=== PATIENT | male | born 1985 | race Caucasian/White ===

== ENCOUNTER 2018-08-29 20:26 | Emergency (ER) | payer OTHER, SELFPAY ==
[2018-08-29 20:30] VITALS: BP 96/54; PULSE 55; RESP 18; TEMP 36.7; O2SAT 100
[2018-08-29] MEDS: TET,DIPH,PERTUSS(ACELL),VAC/PF 0.5 ML SYRINGE IM (21:19)
--- NOTE | 2018-08-29 21:31 | ED.SKABFB ---
HPI - Skin/Abscess/Foreign Bdy General Chief complaint: Skin/Abscess/Foreign Body Stated complaint: CUT LT ARM Time Seen by Provider: 08/29/18 21:31 Source: patient Mode of arrival: ambulatory Limitations: no limitations History of Present Illness HPI narrative: The patient was using a sharp knife at home prior to arrival. He is right-hand dominant. He slipped with his knife, lacerating his left mid forearm. There was mild initial bleeding. Bleeding has ceased. After injuring himself he felt faint, noticed his vision was blurring, and fell to the floor. His assisted him down apparently. He awoke on the floor, recovering quickly. He has no ongoing dizziness, blurred vision, confusion or chest pain. He has no prior history of syncope. He has no cardiac, vascular respiratory problems. He has no numbness or weakness in the left arm. Related Data Home Medications Medication Instructions Recorded Confirmed No Known Home Medications 08/29/18 08/29/18 Allergies Allergy/AdvReac Type Severity Reaction Status Date / Time DUST Allergy Unknown Uncoded 07/27/17 11:50 GRASS Allergy Unknown Uncoded 07/27/17 11:50 Review of Systems Review of Systems ROS Unobtainable: All systems reviewed & are unremarkable except as noted in HPI and below Constitutional Denies lethargy and Denies weakness Eyes Denies change in vision ENT Ears, Nose, Mouth, and Throat: Denies dizziness Cardiovascular Denies chest pain, Denies irregular heart rhythm, Denies lightheadedness, Denies dyspnea, Denies dyspnea on exertion and Denies orthopnea Respiratory Denies cough, Denies dyspnea, Denies dyspnea on exertion and Denies wheezing Gastrointestinal Gastrointestinal: Denies abdominal pain, Denies change in bowel habits, Denies diarrhea, Denies nausea and Denies vomiting Musculoskeletal Denies numbness Comments: Left arm laceration Integumentary/Breasts Denies pruritus, Denies erythema, Denies rash and Denies wounds Neurologic Denies dizziness, Denies numbness and Denies weakness Psychiatric Denies anxiety Allergic/Immunologic Denies wheezing [facility] Medical History (Updated 08/30/18 @ 05:26 by Nico Lafleur MD) Healthy adult (Acute) No active medical problems (Acute) Surgical History (Updated 08/30/18 @ 05:27 by Nico Lafleur MD) No pertinent past surgical history (Acute) Social History Smoking Status: Never smoker Social History Smoking Status: Never smoker Exam Initial Vital Signs Initial Vital Signs: Vital Signs Temperature 98.1 F 08/29/18 20:30 Pulse Rate 55 L 08/29/18 20:30 Respiratory Rate 18 08/29/18 20:30 Blood Pressure 96/54 L 08/29/18 20:30 Pulse Oximetry 100 08/29/18 20:30 Const General: cooperative and well developed Nutritional Appearance: well nourished Orientation: alert, awake, oriented x3 and not confused HENMT Head: normocephalic and atraumatic Face and sinus: no sinus tenderness Mouth: oral mucosae normal and moist mucous membranes Teeth and gingiva: dentition normal Throat: tonsils normal and uvula midline Eyes General: appearance normal, both eyes and all related structures Eyelids: eyelids normal Conjunctivae: conjunctivae normal Sclera: sclerae normal Pupils: PERRL EOM: EOM intact bilaterally Resp Effort & Inspection: normal respiratory effort, able to speak in complete sentences, no respiratory distress and no use of accessory muscles Auscultation: clear to auscultation bilaterally, no rales, no rhonchi and no wheezes Cardio Rate: regular rate Rhythm: regular rhythm Heart Sounds: no click, no gallops, no murmurs and no rubs Pulses: normal peripheral pulses Skin General: no rashes or lesions noted Trauma: laceration left dorsal forearm linear Neuro General: alert, oriented x3, gait normal and no focal motor deficits Speech: speech normal Procedures Laceration Repair Laceration 1: Site: upper extremity (Forearm) Side (If applicable): left Size (cm): 3 Description: linear Depth: simple, single layer Local Anesthetic: lidocaine 1% Pre-repair: wound explored, irrigated extensively and deep structures intact Skin layer closed with: nylon Size (cm): 5-0 Technique: simple, interrupted Course Course Narrative: Following the laceration repair the wound was cleansed and bandaged by the patient's nurse. The patient tolerated the procedure well, there were no complications. He apparently had vasovagal syncope, there are 0 no other clinical findings at this time. Orders Ordered: Discontinued Medications Diphtheria/Tetanus/Acell Pertussis (Adacel) 0.5 ml IM .ONCE ONE Stop: 08/29/18 20:35 Last Admin: 08/29/18 21:19 Dose: 0.5 ml Vital Signs - 8 hr 08/29/18 22:10 Temperature 98.0 F Pulse Rate 48 L Respiratory Rate 16 Blood Pressure [Right Arm] 120/78 Pulse Oximetry 99 Discharge Plan Departure Patient Disposition: Home Clinical Impression: Laceration of arm Qualifiers: Encounter type: initial encounter Laterality: left Qualified Code(s): S41.112A - Laceration without foreign body of left upper arm, initial encounter Discharge Date/Time: 08/29/18 22:05 Interventions: ED Discharge Assessment Last Done: 08/29/18 22:05 Instructions: DI for Laceration Repair Activity Restrictions/Additional Instructions: Keep a bandage on the left arm for 1 day. Afterwards you may shower, wash normally. I would recommend keeping the laceration covered when at work. Follow-up with your doctor in about 10 days for suture removal. Return here if necessary. Prescriptions: No Action No Known Home Medications RF: 0
[2018-08-29 22:10] VITALS: BP 120/78; PULSE 48; RESP 16; TEMP 36.7; O2SAT 99
== END 2018-08-29 22:05 | disposition home or self-care (01) ==
PROVIDERS: Emergency Provider Emergency Medicine
DX: S41.112A Laceration without foreign body of left upper arm, initial encounter (principal); W19.XXXA Unspecified fall, initial encounter; W26.0XXA Contact with knife, initial encounter; Z23 Encounter for immunization
CPT/HCPCS: 12002; 90471; 90472; 99282; 99283; 90715

== ENCOUNTER → 2020-04-10 11:31 | Outpatient (CLI) | payer OTHER, SELFPAY ==
[2020-04-10 12:03] LABS: COVID19 -Nasal RAPID Negative (Negative)
== END ==
PROVIDERS: Visit Provider Physician Assistant
DX: Z20.828 Contact with and (suspected) exposure to other viral communicable diseases (principal); R09.81 Nasal congestion
CPT/HCPCS: 87635

== ENCOUNTER 2020-06-04 09:10 | Emergency (ER) | payer OTHER, SELFPAY ==
--- NOTE | 2020-06-04 09:17 | DI.RAD.S_ITS ---
PROCEDURE: XR CHEST 1V INDICATIONS: chest pain TECHNIQUE: One view of the chest was acquired. COMPARISON: None. FINDINGS: Surgical changes and devices: None. Lungs and pleura: Lungs are clear. No pleural effusions or pneumothorax. Mediastinum: Mediastinal contours appear normal. Heart size is normal. Bones and chest wall: No suspicious bony lesions. Overlying soft tissues appear unremarkable. IMPRESSION: No acute pulmonary process. Dictated by: Brittany Palumbo M.D. on 06/04/2020 at 9:59 Approved by: Brittany Palumbo M.D. on 06/04/2020 at 10:00
[2020-06-04 09:20] VITALS: PULSE 52; RESP 17; O2SAT 100
[2020-06-04 09:23] VITALS: BP 148/67; PULSE 49; RESP 16; TEMP 36.9; O2SAT 99; BMI 25.8
[2020-06-04 09:30] VITALS: PULSE 55; RESP 17; O2SAT 100
[2020-06-04 09:50] LABS: Add Manual Diff / Slide Review NO; Basophils Absolute Auto 0 /uL (0-100); Basophils Percent Auto 1.2 % (0-2); Eosinophils Absolute Auto 200 /uL (0-450); Eosinophils Percent Auto 4.4 % (2-4); Hematocrit 43.4 % (41-53); Lymphocytes Absolute Auto 1300 /uL (1100-4500); Lymphocytes Percent Auto 33.2 % (25-40); Mean Corpuscular HGB Conc 34.5 % (30-36); Mean Corpuscular Hemoglobin 31.1 PG (26-34); Mean Corpuscular Volume 90.1 fL (80-100); Monocytes Absolute Auto 200 /uL (0-900); Monocytes Percent Auto 5.5 % (3-14); Neutrophils Absolute Auto 2200 /uL (1500-7000); Neutrophils Percent Auto 55.7 % (50-75); Platelet Count 212 X10^3/uL (150-400); Red Blood Cell Count 4.82 X10^6/uL (4.5-5.9); Red Cell Distribution Width 12.4 % (11.6-14.8); White Blood Cell Count 3.9 X10^3/uL (4.5-11.0)
[2020-06-04 09:55] LABS: INR 1.1 (0.9-1.3); Prothrombin Time 12.4 SECONDS (10.1-12.7)
[2020-06-04 09:58] LABS: PTT Partial Thromboplastin Tim 33 SECONDS (26.4-36.2)
[2020-06-04 10:00] VITALS: PULSE 51; RESP 15; O2SAT 100
[2020-06-04 10:01] LABS: Alanine Aminotransferase 20 IU/L (<50); Albumin 4.4 g/dL (3.5-5.0); Albumin Globulin Ratio 1.5 (1.0-2.8); Alkaline Phosphatase 64 U/L (38-126); Aspartate Aminotransferase 21 IU/L (17-59); BUN Creatinine Ratio 14.1 (6-22); Bilirubin Total 0.7 mg/dL (0.2-1.3); Blood Urea Nitrogen 14 mg/dL (9-20); Calcium 9.3 mg/dL (8.4-10.2); Carbon Dioxide 32 mmol/L (22-32); Chloride 103 mmol/L (98-107); Creatine Kinase 121 U/L (55-170); Estimated Glomerular Filt Rate > 60.0 mL/min (>60); Globulin 2.9 g/dL (1.7-4.1); Glucose 70 mg/dL (70-100); HEMOLYSIS < 15 (0-50); Lipase 105 U/L (23-300); Sodium 139 mmol/L (137-145); Total Protein 7.3 g/dL (6.3-8.2)
[2020-06-04 10:12] LABS: Troponin I < 0.012 ng/mL (0.01-0.034)
[2020-06-04 10:26] LABS: CKMB % Relative Index 0.5 % (1.5-5.0); Creatine Kinase MB 0.66 ng/mL (<2.37)
[2020-06-04 10:30] VITALS: BP 133/58; PULSE 58; RESP 14; O2SAT 100
--- NOTE | 2020-06-04 10:45 | ED.RECABL ---
HPI - Recheck/Abnormal Lab/Rx General Chief Complaint: Recheck/Abnormal Lab/Rx Stated Complaint: low heart rate of 36-40 today Time Seen by Provider: 06/04/20 10:44 Source: patient Mode of arrival: Ambulatory Limitations: no limitations History of Present Illness HPI narrative: 34-year-old male comes emergency department with complaint of low heartbeat. He states that he received apple watch 2 weeks ago he has had heart rates typically in the 40s but today had a low in the 30s. His lowest this morning was 36. Patient states he has been told once before when he was at [facility] for that his heart rate was in the 40s. At that time he was present because he had multiple stings from around wasps and did not have any other cardiac issues. He denies any other medical issues, no prior surgeries, no medications. No drug allergies. No tobacco, rare alcohol and no illicit. No family history of cardiac abnormalities, sudden cardiac or heart attacks. Patient follows with primary care. They contacted his physician today with a noted low heart rate, his initially called Cardiology her for him to primary care who then referred him to the ER to get an EKG. Patient denies any other symptoms. 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 He does note that his heart rate will increase to the 50s or 60s when he is walking around her active and tends to be in the 30s or 40s when he sitting or sleeping on his Apple watch. Related Data Home Medications Medication Instructions Recorded Confirmed No Known Home Medications 08/29/18 06/04/20 Allergies Allergy/AdvReac Type Severity Reaction Status Date / Time No Known Drug Allergies Allergy Verified 06/04/20 10:38 Review of Systems Review of Systems ROS Unobtainable: All systems reviewed & are unremarkable except as noted in HPI and below Patient History Medical History Healthy adult No active medical problems URI (upper respiratory infection) Surgical History No pertinent past surgical history Social History Smoking Status: Never smoker Smoking Status: Never smoker alcohol intake frequency: 0-2 drinks per day Substance Use Type: does not use Exam Narrative Exam Narrative: GENERAL: Alert and oriented x three, well-nourished, well-appearing male in mild distress HEENT: Head normocephalic, atraumatic, EOMI, pupils reactive, face symmetric, moist mucous membranes NECK: Supple, full range of motion CARDIOVASCULAR: Bradycardic but Regular rate and rhythm without murmurs, rubs or gallops. RESPIRATORY: Breath sounds equal bilaterally, no wheezes rales or rhonchi. ABDOMEN: Soft, nontender. Normoactive bowel sounds all 4 quadrants. No guarding or rebound, rigidity, no mass : No CVA tenderness EXTREMITIES: Normal range of motion, no edema. Neurovascularly intact NEUROLOGICAL: Cranial nerves II through XII grossly intact. Moving all extremities SKIN: Warm, dry, no petechiae, no rashes or lesions. Initial Vital Signs Initial Vital Signs: Vital Signs Pulse Rate 52 L 06/04/20 09:20 Respiratory Rate 17 06/04/20 09:20 Pulse Oximetry 100 06/04/20 09:20 Course Orders Ordered: ED Orders 06/04/20 09:17 XR chest 1V Stat 06/04/20 09:18 EKG-12 Lead Stat 06/04/20 09:40 Complete Blood Count AUTO DIFF Stat Comprehensive Metabolic Panel Stat Lipase Stat Partial Thromboplastin Time Stat Prothrombin Time INR Stat Troponin & CK Cardiac Panel Stat 06/04/20 10:35 Urine Culture Stat Consultations Consultation #1: updated [facility] findings. Time: 11:01 Vital Signs Vital signs: Vital Signs - 8 hr 06/04/20 09:20 06/04/20 09:23 06/04/20 09:30 Temperature 98.5 F Pulse Rate 52 L 49 L 55 L Respiratory Rate 17 16 17 Blood Pressure 148/67 H Pulse Oximetry 100 99 100 06/04/20 10:00 06/04/20 10:30 Temperature Pulse Rate 51 L 58 L Respiratory Rate 15 14 Blood Pressure 133/58 L Pulse Oximetry 100 100 [facility] - Recheck/Abnormal Lab/Rx Lab Data Attestation: I reviewed the patient's lab results. Result diagrams: 06/04/20 09:40 06/04/20 09:40 Labs: Lab Results 02/17/21 02/17/21 02/17/21 Range/Units 09:40 09:40 09:40 WBC 3.9 L (4.5-11.0) X10^3/uL RBC 4.82 (4.5-5.9) X10^6/uL Hgb 15.0 (13.5-17.5) g/dL Hct 43.4 (41-53) % MCV 90.1 (80-100) fL MCH 31.1 (26-34) PG MCHC 34.5 (30-36) % RDW 12.4 (11.6-14.8) % Plt Count 212 (150-400) X10^3/uL Neut % (Auto) 55.7 (50-75) % Lymph % (Auto) 33.2 (25-40) % [place] % (Auto) 5.5 (3-14) % Eos % (Auto) 4.4 H (2-4) % Baso % (Auto) 1.2 (0-2) % Neut # (Auto) 2200 (2469-9770) /uL Lymph # (Auto) 1300 (3827-4981) /uL [place] # (Auto) 200 (0-900) /uL Eos # (Auto) 200 (0-450) /uL Baso # (Auto) 0 (0-100) /uL PT 12.4 (10.1-12.7) SECONDS INR 1.1 (0.9-1.3) APTT 33 (26.4-36.2) SECONDS Sodium 139 (137-145) mmol/L Potassium 4.0 (3.4-5.1) mmol/L Chloride 103 (98-107) mmol/L Carbon Dioxide 32 (22-32) mmol/L BUN 14 (9-20) mg/dL Creatinine 0.99 (0.66-1.25) mg/dL Estimated GFR > 60.0 (>60) mL/min BUN/Creatinine Ratio 14.1 (6-22) Glucose 70 (70-100) mg/dL Calcium 9.3 (8.4-10.2) mg/dL Total Bilirubin 0.7 (0.2-1.3) mg/dL AST 21 (17-59) IU/L ALT 20 (<50) IU/L Alkaline Phosphatase 64 (38-126) U/L Total Creatine Kinase 121 (55-170) U/L CK-MB (CK-2) 0.66 (<2.37) ng/mL CK-MB (CK-2) Rel Index 0.5 L (1.5-5.0) % Troponin I < 0.012 (0.01-0.034) ng/mL Total Protein 7.3 (6.3-8.2) g/dL Albumin 4.4 (3.5-5.0) g/dL Globulin 2.9 (1.7-4.1) g/dL Albumin/Globulin Ratio 1.5 (1.0-2.8) Lipase 105 (23-300) U/L Urine Color Urine Appearance Urine pH Ur Specific Leslie Urine Protein Urine Glucose (UA) Urine Ketones Urine Occult Blood Urine Nitrate Urine Bilirubin Urine Urobilinogen Ur Leukocyte Esterase Urine RBC Urine WBC Ur Squamous Epith Cells Ur Transition Epith Cell Ur Renal Epithelial Cell Calcium Oxalate Crystal Uric Acid Crystals Triple Phos Crystals Other Crystals Amorphous Sediment Urine Bacteria Hyaline Casts Granular Casts RBC Casts WBC Casts Other Casts Urine Mucus Urine Trichomonas Urine Yeast Urine Sperm Ur Culture Indicated? Micro UA Comment 06/04/20 Range/Units 10:35 WBC (4.5-11.0) X10^3/uL RBC (4.5-5.9) X10^6/uL Hgb (13.5-17.5) g/dL Hct (41-53) % MCV (80-100) fL MCH (26-34) PG MCHC (30-36) % RDW (11.6-14.8) % Plt Count (150-400) X10^3/uL Neut % (Auto) (50-75) % Lymph % (Auto) (25-40) % [place] % (Auto) (3-14) % Eos % (Auto) (2-4) % Baso % (Auto) (0-2) % Neut # (Auto) (0211-9514) /uL Lymph # (Auto) (5193-2927) /uL [place] # (Auto) (0-900) /uL Eos # (Auto) (0-450) /uL Baso # (Auto) (0-100) /uL PT (10.1-12.7) SECONDS INR (0.9-1.3) APTT (26.4-36.2) SECONDS Sodium (137-145) mmol/L Potassium (3.4-5.1) mmol/L Chloride (98-107) mmol/L Carbon Dioxide (22-32) mmol/L BUN (9-20) mg/dL Creatinine (0.66-1.25) mg/dL Estimated GFR (>60) mL/min BUN/Creatinine Ratio (6-22) Glucose (70-100) mg/dL Calcium (8.4-10.2) mg/dL Total Bilirubin (0.2-1.3) mg/dL AST (17-59) IU/L ALT (<50) IU/L Alkaline Phosphatase (38-126) U/L Total Creatine Kinase (55-170) U/L CK-MB (CK-2) (<2.37) ng/mL CK-MB (CK-2) Rel Index (1.5-5.0) % Troponin I (0.01-0.034) ng/mL Total Protein (6.3-8.2) g/dL Albumin (3.5-5.0) g/dL Globulin (1.7-4.1) g/dL Albumin/Globulin Ratio (1.0-2.8) Lipase (23-300) U/L Urine Color Cancelled Urine Appearance Cancelled Urine pH Cancelled Ur Specific Leslie Cancelled Urine Protein Cancelled Urine Glucose (UA) Cancelled Urine Ketones Cancelled Urine Occult Blood Cancelled Urine Nitrate Cancelled Urine Bilirubin Cancelled Urine Urobilinogen Cancelled Ur Leukocyte Esterase Cancelled Urine RBC Cancelled Urine WBC Cancelled Ur Squamous Epith Cells Cancelled Ur Transition Epith Cell Cancelled Ur Renal Epithelial Cell Cancelled Calcium Oxalate Crystal Cancelled Uric Acid Crystals Cancelled Triple Phos Crystals Cancelled Other Crystals Cancelled Amorphous Sediment Cancelled Urine Bacteria Cancelled Hyaline Casts Cancelled Granular Casts Cancelled RBC Casts Cancelled WBC Casts Cancelled Other Casts Cancelled Urine Mucus Cancelled Urine Trichomonas Cancelled Urine Yeast Cancelled Urine Sperm Cancelled Ur Culture Indicated? Cancelled Micro UA Comment Cancelled Imaging Data Chest x-ray: Radiologist's Impression: [address] [id number] ReportSigned Patient: Bertin Tam [facility]#: [id number]: 1985Acct:[id number]/Sex: 34 / MDate of Service: 06/04/20Loc: EDAccession Number: [id number] Procedure: XR chest 1V Ordering Provider: Christina Muller D.O. PROCEDURE: XR CHEST 1V INDICATIONS: chest pain TECHNIQUE: One view of the chest was acquired. COMPARISON: None. FINDINGS: Surgical changes and devices: None. Lungs and pleura: Lungs are clear. No pleural effusions or pneumothorax. Mediastinum: Mediastinal contours appear normal. Heart size is normal. Bones and chest wall: No suspicious bony lesions. Overlying soft tissues appear unremarkable. IMPRESSION: No acute pulmonary process. Dictated by: Brittany Palumbo M.D. on 06/04/2020 at 9:59 Approved by: Brittany Palumbo M.D. on 06/04/2020 at 10:00 ECG Data Attestation: I personally reviewed and interpreted this ECG as follows: Prior ECG tracings: not available for review Interpretation: Sinus bradycardia rate of 44, TX interval 132 QRS of 105 and QTC of 378. RSR in lead 3. No other acute ST changes appreciated. MDM Narrative Medical decision making narrative: This is a 34-year-old male with asymptomatic bradycardia appreciated within new [employer]. Patient EKG does not show any other major electrical abnormalities labs do not show any abnormalities that would causes bradycardia with normal chest x-ray with no cardiomegaly. Patient does not have any concerning family history at this time. Return precautions discussed. Discharge Plan Departure Patient Disposition: Home Clinical Impression: Bradycardia Instructions: DI for Bradycardia Activity Restrictions/Additional Instructions: Follow up with Dr. Liang, they may wish to obtain some additional work up as an outpatient. Discuss with Dr. Liang. Your EKG today shows sinus bradycardia or a slow heartbeat but no other electrical abnormalities are appreciated. Return to the emergency department if you know your heart rates running in the 20s or below 30s, if you are having any symptoms such as lightheadedness or passing out, new chest pain, shortness of breath, swelling in her extremities, diaphoresis or sweating, or any other new or concerning symptoms. Prescriptions: No Action No Known Home Medications RF: 0 Referrals: Nico Liang MD [Primary Care Provider] -
--- NOTE | 2020-06-04 10:48 | PC.NURSE ---
UA/Micro order placed on wrong pt, not collected & sent.
== END 2020-06-04 11:13 | disposition home or self-care (01) ==
PROVIDERS: Emergency Provider Emergency Medicine; PCP Family Medicine
DX: R00.1 Bradycardia, unspecified (principal); R07.9 Chest pain, unspecified
CPT/HCPCS: 36415; 71045; 80053; 82550; 82553; 83690; 84484; 85025; 85610; 85730; 87086; 93005; 93010; 99283; 99284

== ENCOUNTER 2022-09-22 23:09 | Emergency (ER) | payer OTHER, SELFPAY ==
[2022-09-22 23:42] VITALS: BP 141/80; PULSE 72; RESP 18; TEMP 36.2; O2SAT 100; BMI 27.3
[2022-09-22 23:59] VITALS: PULSE 69; RESP 14; O2SAT 100
[2022-09-23] VITALS (13 sets, daily range): BP systolic 107–142; BP diastolic 53–75; PULSE 41–67; RESP 9–33; TEMP 36.3; O2SAT 97–100
[2022-09-23] MEDS: ONDANSETRON 4 MG/2 ML INJ IV (00:33)
[2022-09-23 00:39] LABS: Add Manual Diff / Slide Review NO; Basophils Absolute Auto 100 /uL (0-100); Basophils Percent Auto 0.5 % (0-2); Eosinophils Absolute Auto 200 /uL (0-450); Eosinophils Percent Auto 1.9 % (2-4); Hematocrit 45.7 % (41-53); Hemoglobin 15.9 g/dL (13.5-17.5); Lymphocytes Absolute Auto 2200 /uL (1100-4500); Mean Corpuscular HGB Conc 34.7 % (30-36); Mean Corpuscular Hemoglobin 30.5 PG (26-34); Mean Corpuscular Volume 87.8 fL (80-100); Monocytes Absolute Auto 700 /uL (0-900); Monocytes Percent Auto 5.3 % (3-14); Neutrophils Absolute Auto 9100 /uL (1500-7000); Neutrophils Percent Auto 74.3 % (50-75); Platelet Count 241 X10^3/uL (150-400); Red Blood Cell Count 5.21 X10^6/uL (4.5-5.9); Red Cell Distribution Width 12.6 % (11.6-14.8); White Blood Cell Count 12.2 X10^3/uL (4.5-11.0)
[2022-09-23 00:54] LABS: Alanine Aminotransferase 39 IU/L (<50); Albumin Globulin Ratio 1.7 (1.0-2.8); Alkaline Phosphatase 83 U/L (38-126); Aspartate Aminotransferase 34 IU/L (17-59); BUN Creatinine Ratio 18.3 (6-22); Bilirubin Total 0.8 mg/dL (0.2-1.3); Blood Urea Nitrogen 17 mg/dL (9-20); Calcium 9.3 mg/dL (8.4-10.2); Carbon Dioxide 26 mmol/L (22-32); Chloride 100 mmol/L (98-107); Estimated Glomerular Filt Rate > 60 mL/min (>60); Glucose 128 mg/dL (70-100); HEMOLYSIS 25 (0-50); Lipase 111 U/L (23-300); Potassium 3.3 mmol/L (3.4-5.1); Sodium 137 mmol/L (137-145)
[2022-09-23 01:29] LABS: Creatine Kinase 138 U/L (55-170)
[2022-09-23 01:42] LABS: Troponin I < 0.012 ng/mL (0.01-0.034)
--- NOTE | 2022-09-23 03:03 | ED_ITS ---
HPI - Abdominal Pain General Chief Complaint: Abdominal Pain Stated Complaint: abd pain Time Seen by Provider: 09/23/22 00:47 Source: patient Mode of arrival: Ambulatory Limitations: no limitations History of Present Illness HPI narrative: 36-year-old male with history of lactose intolerance, patient states he had sudden onset abdominal pain about 515 this evening, started feeling much more bloated and having increasing pain about 8:00 p.m. continued to increase. He states was sort of just above the umbilicus in a band across. No fevers felt a little chilled. Nauseated but no vomiting. Has been stooling regularly no black or bloody stools. No bright red blood. No dysuria urgency or frequency. He states a little bit of flank pain on both sides. He states it has decreased since he had some Zofran here in the department his nausea is resolved. No testicular pain, no dysuria, urgency or frequency. He did take ibuprofen at 5:00 p.m.. Patient states he does sometimes feel unwell when he has lactose but usually lower in his abdomen and not higher up. He states he had carrots, homeless, crackers typical foods that he eats that do not have any lactose in them. He states no major medical issues he takes Zyrtec sometimes. No prior surgeries. No known drug allergies. No tobacco, 1-2 alcoholic drinks a week, no illicit. He notes he does have a low heart rate as does his father and grandfather and has been noted to be down in the 30s when he is asleep. Related Data Previous Rx's Medication Instructions Recorded ketorolac 10 mg tablet 10 mg PO Q6H PRN pain 5 days #10 09/23/22 tabs ondansetron 4 mg disintegrating 4 mg PO Q6H PRN nausea and 09/23/22 tablet vomiting #5 tabs Allergies Allergy/AdvReac Type Severity Reaction Status Date / Time No Known Drug Allergies Allergy Verified 06/04/20 10:38 Review of Systems Review of Systems ROS Unobtainable: All systems reviewed & are unremarkable except as noted in HPI and below Patient History Medical History Healthy adult No active medical problems URI (upper respiratory infection) Surgical History No pertinent past surgical history Social History Smoking Status: Never smoker Smoking Status: Never smoker alcohol intake frequency: 0-2 drinks per day Substance Use Type: does not use Exam Narrative Exam Narrative: GENERAL: Alert and oriented x three, well-nourished, well-appearing male in mild distress. HEENT: Head normocephalic, atraumatic, EOMI, pupils reactive, face symmetric, moist mucous membranes NECK: Supple, full range of motion CARDIOVASCULAR: Regular rate and rhythm without murmurs, rubs or gallops. RESPIRATORY: Breath sounds equal bilaterally, no wheezes rales or rhonchi. ABDOMEN: Soft, generalized tenderness no increase in pain with deep palpation.. Normoactive bowel sounds all 4 quadrants. No guarding or rebound, rigidity, no mass, non-distended. : No CVA tenderness EXTREMITIES: Normal range of motion, no clubbing or edema. Neurovascularly intact NEUROLOGICAL: Cranial nerves II through XII grossly intact. Moving all ext remities SKIN: Warm, dry, no petechiae, no rashes or lesions. Initial Vital Signs Initial Vital Signs: Vital Signs Temperature 97.1 F L 09/22/22 23:42 Pulse Rate 72 09/22/22 23:42 Respiratory Rate 18 09/22/22 23:42 Blood Pressure 141/80 H 09/22/22 23:42 Pulse Oximetry 100 09/22/22 23:42 Oxygen Delivery Method Room Air 09/22/22 23:42 Course Orders Ordered: ED Orders 09/23/22 00:06 Complete Blood Count AUTO DIFF Stat Comprehensive Metabolic Panel Stat Lipase Stat EKG-12 Lead Stat 09/23/22 00:48 Troponin & CK Cardiac Panel Stat 09/23/22 03:15 CT abdomen pelvis w con Stat Discontinued Medications Sodium Chloride (Normal Saline 0.9%) 1,000 mls @ 1,000 mls/hr IV BOLUS ONE Stop: 09/23/22 04:14 Last Infusion: 09/23/22 04:24 Dose: 0 mls/hr Documented By: Admin: 09/23/22 03:24 Dose: 1,000 mls/hr Documented By: MANUELA Ketorolac Tromethamine (Ketorolac 30 Mg/Ml Vial) 15 mg IV NOW ONE Stop: 09/23/22 03:16 Last Admin: 09/23/22 03:23 Dose: 15 mg Documented By: MANUELA Ondansetron HCl (Ondansetron 4 Mg Odt) 4 mg PO NOW PRN PRN Reason: Nausea And Vomiting Ondansetron HCl (Ondansetron 4 Mg/2 Ml Inj) 4 mg IV NOW PRN PRN Reason: Nausea And Vomiting Last Admin: 09/23/22 00:33 Dose: 4 mg Documented By: MANUELA Ondansetron HCl (Ondansetron 4 Mg Odt Prepack) 1 bottle MISC SEEINSTR ONE Stop: 09/23/22 04:37 Vital Signs Vital signs: Vital Signs - 8 hr 09/22/22 23:42 09/23/22 04:56 09/22/22 23:59 Temperature 97.1 F L 97.3 F L Pulse Rate 72 56 L 69 Respiratory Rate 18 14 14 Blood Pressure 141/80 H 114/58 L Pulse Oximetry 100 99 100 Oxygen Delivery Method Room Air Room Air 09/23/22 00:00 09/23/22 00:00 09/23/22 00:30 Temperature Pulse Rate 67 50 L Respiratory Rate 12 Blood Pressure 128/63 Pulse Oximetry 100 100 Oxygen Delivery Method 09/23/22 00:31 09/23/22 00:31 09/23/22 01:00 Temperature Pulse Rate 48 L Respiratory Rate 9 L Blood Pressure 127/72 122/64 Pulse Oximetry 100 Oxygen Delivery Method 09/23/22 01:00 09/23/22 01:30 09/23/22 01:30 Temperature Pulse Rate 41 L 42 L Respiratory Rate 19 14 Blood Pressure 142/75 H Pulse Oximetry 99 100 Oxygen Delivery Method 09/23/22 02:00 09/23/22 02:00 09/23/22 02:30 Temperature Pulse Rate 52 L Respiratory Rate 14 Blood Pressure 116/62 135/63 Pulse Oximetry 97 Oxygen Delivery Method 09/23/22 02:30 09/23/22 03:00 09/23/22 03:01 Temperature Pulse Rate 53 L 43 L Respiratory Rate 20 14 Blood Pressure 107/53 L Pulse Oximetry 97 98 Oxygen Delivery Method 09/23/22 03:01 09/23/22 03:32 09/23/22 04:00 Temperature Pulse Rate 43 L 64 54 L Respiratory Rate 15 29 H Blood Pressure Pulse Oximetry 99 100 99 Oxygen Delivery Method 09/23/22 04:30 Temperature Pulse Rate 49 L Respiratory Rate 33 H Blood Pressure 112/58 L Pulse Oximetry 100 Oxygen Delivery Method MDM - Abdominal Pain Lab Data 09/22/22 23:55 09/22/22 23:55 Labs: Lab Results 09/22/22 09/22/22 09/22/22 Range/Units 23:55 23:55 23:55 WBC 12.2 H (4.5-11.0) X10^3/uL RBC 5.21 (4.5-5.9) X10^6/uL Hgb 15.9 (13.5-17.5) g/dL Hct 45.7 (41-53) % MCV 87.8 (80-100) fL MCH 30.5 (26-34) PG MCHC 34.7 (30-36) % RDW 12.6 (11.6-14.8) % Plt Count 241 (150-400) X10^3/uL Neut % (Auto) 74.3 (50-75) % Lymph % (Auto) 18.0 L (25-40) % [place] % (Auto) 5.3 (3-14) % Eos % (Auto) 1.9 L (2-4) % Baso % (Auto) 0.5 (0-2) % Neut # (Auto) 9100 H (7409-9338) /uL Lymph # (Auto) 2200 (0479-5062) /uL [place] # (Auto) 700 (0-900) /uL Eos # (Auto) 200 (0-450) /uL Baso # (Auto) 100 (0-100) /uL Sodium 137 (137-145) mmol/L Potassium 3.3 L (3.4-5.1) mmol/L Chloride 100 (98-107) mmol/L Carbon Dioxide 26 (22-32) mmol/L BUN 17 (9-20) mg/dL Creatinine 0.93 (0.66-1.25) mg/dL Estimated GFR > 60 (>60) mL/min BUN/Creatinine Ratio 18.3 (6-22) Glucose 128 H (70-100) mg/dL Calcium 9.3 (8.4-10.2) mg/dL Total Bilirubin 0.8 (0.2-1.3) mg/dL AST 34 (17-59) IU/L ALT 39 (<50) IU/L Alkaline Phosphatase 83 (38-126) U/L Total Creatine Kinase 138 (55-170) U/L CK-MB (CK-2) TNP CK-MB (CK-2) Rel Index TNP Troponin I < 0.012 (0.01-0.034) ng/mL Total Protein 8.0 (6.3-8.2) g/dL Albumin 5.0 (3.5-5.0) g/dL Globulin 3.0 (1.7-4.1) g/dL Albumin/Globulin Ratio 1.7 (1.0-2.8) Lipase 111 (23-300) U/L Point of care testing: Urine Dip Bedside Urine Glucose Negative Bedside Urine Bilirubin - Negative Bedside Urine Ketone - Negative Urine Specific [place] 1.010 Bedside Urine Occult Blood - Negative Bedside Urine pH 8.5 Bedside Urine Protein - Negative Bedside Urine Urobilinogen - Negative Bedside Urine Nitrite - Negative Bedside Urine Leukocytes - Negative Esterase Imaging Data CT scan - abdomen/pelvis: Radiologist's Impression: Findings compatible with small-bowel obstruction with transition point within the left mid abdomen. No pneumoperitoneum or pneumatosis noted. Lung bases are clear. No pericardial pleural effusion. Liver, gallbladder, pancreas, spleen a nd adrenal glands and kidneys are normal. Prominent lymph nodes within the right lower quadrant measuring up to 9 mm in short axis. No retroperitoneal adenopathy. No abdominal ascites. Trace free fluid within the pelvis. Bladder is unremarkable. Prostate gland and seminal vesicles are normal. The colon is unremarkable. Normal-appearing appendix. Dilated small bowel loops measuring up to 4.4 cm with scattered air-fluid levels present and fecalization with a transition point within left mid abdomen. No suspicious lytic or sclerotic lesions noted. ECG Data Attestation: I personally reviewed and interpreted this ECG as follows: Interpretation: Sinus bradycardia, rate of 43 SC 174 QRS of 122, QTC 380. Little bit ST depression 2 3 and AVF. No elevation. Patient has prior from 06/04/2020 that had similar lead 3 TG 2 and AVF. MDM Narrative Medical decision making narrative: This is a 36-year-old male who presents with quite a bit abdominal pain initially has improved over time had some Zofran which was helpful. Has a history of lactose intolerance he denies any ingestions that would cause issues and states all the food that he ate are typical foods that are not problematic for him. Patient states kind of upper abdominal above the umbilicus in a band across little bit into the flanks. Labs including CBC, coags CMP shows a potassium of 3 3, glucose is 128, LFTs are negative, troponin was added on he is not having any chest pain or shortness of breath but EKG showed will ST change in 2 and AVF. Patient received Zofran which was helpful. Discussed with patient risks versus benefits he is feeling better but still somewhat painful. He is nontender on exam. Patient and I discussed options, felt ultrasound not likely helpful as he is nontender in these areas. Can do CT abdomen pelvis may not yield much information and does have radiation risk. Patient elects to proceed with imaging as he states this is very atypical for him. CT abdomen pelvis shows transition point in the left midabdomen. Patient had nausea but has not been having vomiting. , he notes he has been stooling regularly. Discussed with patient would likely recommend clear liquid diet, pain control and strict return precautions if not having bowel movements or flatus or having any vomiting or worsening symptoms. Patient feels comfortable with this plan. Discussed observation but he feels comfortable returning home. Discussed importance of hydration, strict return precautions and if patient is having any of the reviewed symptoms he needs to return. We will give a course of Zofran with just a few tablets, can do Tylenol and oral ketorolac as he thought this helpful for pain. Patient has not had any intra-abdominal surgery, no other known risk factors for bowel obstruction we discussed that patient should have colonoscopy to evaluate for potential reasons why he may have developed is changes on his imaging. Discharge Plan Departure Patient Disposition: Home Clinical Impression: Partial bowel obstruction Instructions: DI for Small Bowel Obstruction Activity Restrictions/Additional Instructions: Follow-up in the next 24-48 hours if your symptoms have not resolved or are not significantly improved. Your imaging today shows a transition point or signs consistent with possible bowel obstruction in the left mid abdomen. I would recommend clear liquid diet for the initial 12 hours, if tolerating this without issue and pain is improving you can start to advance your diet initially to soft diet and then solids slowly over time. You may take Zofran 1 tablet every 6 hours as needed for nausea. You may take Tylenol up to a 1000 mg every 6 hours as needed for pain, you can take ketorolac 1 tablet every 6 hours as needed for pain as well. This medication is in the same category as ibuprofen so do not take NSAIDs, Aleve or naproxen with it. Prescription sent to [facility] in [place]. Please return for fevers, worsening abdominal pain, vomiting, if you are not passing gas or having a bowel movement or other new or concerning changes. Prescriptions: New ketorolac 10 mg tablet 10 mg PO Q6H PRN (Reason: pain) 5 Days Qty: 10 0RF ondansetron 4 mg tablet,disintegrating 4 mg PO Q6H PRN (Reason: nausea and vomiting) Qty: 5 0RF Referrals: Nico Liang MD [Primary Care Provider] - Stand Alone Forms: Patient Portal/API
--- NOTE | 2022-09-23 03:15 | DI.CT.S_ITS ---
PROCEDURE: CT ABDOMEN PELVIS W CON INDICATIONS: abd pain, band across abd, mild b/l flank TECHNIQUE: After the administration of oral and IV contrast, axial sections were acquired from the lung bases to the pubic symphysis. Coronal and sagittal reformats were performed. For radiation dose reduction, the following was used: automated exposure control, adjustment of mA and/or kV according to patient size. COMPARISON: None. FINDINGS: Image quality: Excellent. Lung bases: Unremarkable. Heart: No significant findings. ABDOMEN: Liver: Unremarkable. Gallbladder: Unremarkable. Biliary ducts: Unremarkable. Pancreas: Unremarkable. Spleen: Unremarkable. Adrenal Glands: Unremarkable. Kidneys and Ureters: Unremarkable. Stomach and Bowel: Stomach is mildly distended with an air-fluid level. Proximal small bowel loops are distended with multiple air-fluid levels measuring up to 4 cm in diameter. There is a transitional point in the mid to lower left abdomen probably involving the distal jejunum (best seen on coronal series 4, image 24). There is mild segmental small bowel wall thickening is present in the mid to lower abdomen (series 2, image 59). The CT findings are consistent with small bowel obstruction. Peritoneum: Trace amount intraperitoneal fluid. No free air. Ventral Wall: No hernia. Abdominal Nodes: No retroperitoneal or mesenteric adenopathy by size criteria. Vessels: Aorta and inferior vena cava are normal in size. PELVIS: Pelvic Organs: Unremarkable. Bladder: Unremarkable. Pelvic Nodes: No enlarged lymph nodes. Miscellaneous: No inguinal hernias are seen. Bones: Unremarkable. IMPRESSION: 1. The CT findings are consistent with small bowel obstruction. The transitional point is in the mid to lower left abdomen, probably involving the distal jejunum. There is mild segmental thickening in the mid to lower abdomen. 2. There is a trace amount of free fluid. No free air. No significant discrepancy with the practice nurse radiology preliminary report. Dictated by: Radha Gibson M.D. on 09/23/2022 at 7:57 Approved by: Radha Gibson M.D. on 09/23/2022 at 8:13
[2022-09-23] MEDS: KETOROLAC 30 MG/ML VIAL 15 MG IV (03:23)
[2022-09-23] MEDS: SODIUM CHLORIDE 0.9% 1,000 ML 1000 ML IV (03:24)
== END 2022-09-23 04:57 | disposition home or self-care (01) ==
PROVIDERS: Emergency Provider Emergency Medicine; PCP Family Medicine
DX: K56.600 Partial intestinal obstruction, unspecified as to cause (principal); R11.0 Nausea; R10.9 Unspecified abdominal pain
CPT/HCPCS: 36415; 74177; 80053; 81003; 82550; 83690; 84484; 85025; 93005; 93010; 96361; 96374; 96375; 99284; J1885; J2405; Q9967

== ENCOUNTER 2022-09-25 19:38 | Emergency (ER) | payer OTHER, SELFPAY ==
[2022-09-25 19:53] VITALS: BP 148/64; PULSE 46; RESP 16; TEMP 36.3; O2SAT 98; BMI 25.5
--- NOTE | 2022-09-25 20:09 | ED_ITS ---
HPI - General Adult General Chief complaint: Abdominal Pain Stated complaint: intestinal blockage Time Seen by Provider: 09/25/22 20:09 Source: patient Mode of arrival: Ambulatory History of Present Illness HPI narrative: 36-year-old gentleman otherwise healthy with a history of lactose intolerance was initially seen in the emergency department on September 23 with complaints of abdominal pain and distention. CT scan and labs at that time suggested a partial bowel obstruction he was sent home with instructions to have a clear liquid diet. Pain has been relatively controlled he has not had anything to eat for the last 24 hours. He notes he did have a banana and some pudding 24 hours ago and that seem to go down okay. He is able to drink. Still feels that he is somewhat distended. His is concerned that he is still not back to eating and wanted him to come in for further evaluation. He reports no fevers, no bowel movements but he is passing some gas. No nausea or vomiting. No chest pain, palpitations or dyspnea. Related Data Previous Rx's Medication Instructions Recorded ketorolac 10 mg tablet 10 mg PO Q6H PRN pain 5 days #10 09/23/22 tabs ondansetron 4 mg disintegrating 4 mg PO Q6H PRN nausea and 09/23/22 tablet vomiting #5 tabs Allergies Allergy/AdvReac Type Severity Reaction Status Date / Time No Known Drug Allergies Allergy Verified 09/25/22 19:52 Review of Systems Review of Systems Narrative: Pertinent positive and negative findings as per HPI Patient History Medical History Healthy adult No active medical problems URI (upper respiratory infection) Surgical History No pertinent past surgical history Social History Smoking Status: Never smoker Smoking Status: Never smoker alcohol intake frequency: 0-2 drinks per day Substance Use Type: does not use Exam Initial Vital Signs Initial Vital Signs: Vital Signs Temperature 97.3 F L 09/25/22 19:53 Pulse Rate 46 L 09/25/22 19:53 Respiratory Rate 16 09/25/22 19:53 Blood Pressure 148/64 H 09/25/22 19:53 Pulse Oximetry 98 09/25/22 19:53 Oxygen Delivery Method Room Air 09/25/22 19:53 General: Healthy appearing, in no acute distress. Able to give a complete and coherent history. Well-nourished well-developed HEENT: Moist mucous membranes, normal sclera with reactive pupils, Neck: No JVD, supple Respiratory: Lungs are clear to auscultation, no wheezing no rales no rhonchi. Full and symmetrical air movement Cardiac: Regular rate and rhythm no murmurs no bruits Abdomen: Soft, mild distention, mild diffuse tenderness without rebound or guarding, good bowel tones, no flank pain Skin: Warm and dry, no rashes Neurologic: Grossly neurologically intact with no obvious asymmetries or abnormalities Extremities: No trauma, well perfused Psych: Cooperative, appropriate insight and affect Course Orders Ordered: ED Orders 09/25/22 20:12 CT abdomen pelvis w con Stat 09/25/22 20:30 Complete Blood Count AUTO DIFF Stat Comprehensive Metabolic Panel Stat Lipase Stat 09/25/22 20:59 Consult to General Surgery Urgent Hydromorphone HCl (Hydromorphone 0.5 Mg Inj) 0.5 mg IV Q15MIN PRN PRN Reason: Pain, Hydromorphone HCl (Hydromorphone 0.5 Mg Inj) 0.5 mg IV Q2H PRN PRN Reason: Pain, Severe (7-10) Sodium Chloride (Normal Saline 0.9%) 1,000 mls @ 125 mls/hr IV CONT CHERYL Last Admin: 09/25/22 22:09 Dose: Not Given Ondansetron HCl (Ondansetron 4 Mg Odt) 4 mg PO NOW PRN PRN Reason: Nausea And Vomiting Ondansetron HCl (Ondansetron 4 Mg/2 Ml Inj) 4 mg IV NOW PRN PRN Reason: Nausea And Vomiting Ondansetron HCl (Ondansetron 4 Mg/2 Ml Inj) 4 mg IV Q4HR PRN PRN Reason: Nausea And Vomiting Discontinued Medications Sodium Chloride (Normal Saline 0.9%) 1,000 mls @ 1,000 mls/hr IV BOLUS ONE Stop: 09/25/22 21:11 Last Infusion: 09/25/22 21:55 Dose: 0 mls/hr Documented By: JUAN FRANCISCO Admin: 09/25/22 20:34 Dose: 1,000 mls/hr Documented By: JUAN FRANCISCO Ondansetron HCl (Ondansetron 4 Mg/2 Ml Inj) 4 mg IV NOW ONE Stop: 09/25/22 20:13 Last Admin: 09/25/22 20:33 Dose: 4 mg Documented By: JUAN FRANCISCO Vital Signs Vital signs: Vital Signs - 8 hr 09/25/22 19:53 Temperature 97.3 F L Pulse Rate 46 L Respiratory Rate 16 Blood Pressure 148/64 H Pulse Oximetry 98 Oxygen Delivery Method Room Air Medical Decision Making Lab Data 09/25/22 20:30 09/25/22 20:30 Labs: Lab Results 09/25/22 09/25/22 Range/Units 20:30 20:30 WBC 5.9 (4.5-11.0) X10^3/uL RBC 4.96 (4.5-5.9) X10^6/uL Hgb 15.2 (13.5-17.5) g/dL Hct 44.0 (41-53) % MCV 88.7 (80-100) fL MCH 30.7 (26-34) PG MCHC 34.6 (30-36) % RDW 12.5 (11.6-14.8) % Plt Count 215 (150-400) X10^3/uL Neut % (Auto) 54.2 (50-75) % Lymph % (Auto) 35.0 (25-40) % [place] % (Auto) 6.1 (3-14) % Eos % (Auto) 3.6 (2-4) % Baso % (Auto) 1.1 (0-2) % Neut # (Auto) 3200 (7387-8983) /uL Lymph # (Auto) 2100 (0041-9347) /uL [place] # (Auto) 400 (0-900) /uL Eos # (Auto) 200 (0-450) /uL Baso # (Auto) 100 (0-100) /uL Sodium 137 (137-145) mmol/L Potassium 3.7 (3.4-5.1) mmol/L Chloride 100 (98-107) mmol/L Carbon Dioxide 28 (22-32) mmol/L BUN 14 (9-20) mg/dL Creatinine 0.95 (0.66-1.25) mg/dL Estimated GFR > 60 (>60) mL/min BUN/Creatinine Ratio 14.7 (6-22) Glucose 79 (70-100) mg/dL Calcium 9.1 (8.4-10.2) mg/dL Total Bilirubin 1.2 (0.2-1.3) mg/dL AST 26 (17-59) IU/L ALT 29 (<50) IU/L Alkaline Phosphatase 68 (38-126) U/L Total Protein 8.0 (6.3-8.2) g/dL Albumin 4.7 (3.5-5.0) g/dL Globulin 3.3 (1.7-4.1) g/dL Albumin/Globulin Ratio 1.4 (1.0-2.8) Lipase 94 (23-300) U/L MDM Narrative Medical decision making narrative: CC: Abdominal pain, acute issue uncertain prognosis Complicating co-morbidities: Recent diagnosis partial bowel obstruction Data collected from: patient, Medical records reviewed: ER note from September 23 reviewed Differential considered: Mass tumor obstruction causing the transition point for his bowel obstruction seen 3 days ago. Gastroenteritis, Crohn's disease, Exam documented above, pertinent findings include: Mild abdominal distention without severe pain Lab Test results independently reviewed as above. Pertinent findings: Repeat CBC is unremarkable with white count coming down Chemistries are entirely reassuring Imaging studies independently reviewed: Repeat CT scan is very reassuring. Possible low-grade infectious or inflammatory colitis. There is no abscess collection. Previous partial small-bowel obstruction with transition point is not seen on this study. Normal appendix is appreciated Consultations: Care is discussed with Dr. Vee, general surgery. Will repeat CT scan and if it is significantly normal will plan on admitting the patient. Treatments: Fluid and Zofran given common pain medications were not required. Re-evaluations: Patient is re-evaluated after CT scan returns. Reviewed findings with him. At this point he is having no abdominal pain. I see no indication for admission at that time. I suspect that there is a infectious/gastroenteritis etiology that caused the initial symptoms that is resolving but is still showing the mild inflammatory findings on CT today. We talked about a slow bland diet. If he has worsening symptoms last him to return to the emergency room for further evaluation but at this point he is safe for discharge home. Discharge Plan Departure Patient Disposition: Home Clinical Impression: Colitis Instructions: DI for Colitis Activity Restrictions/Additional Instructions: Thank you for coming back this evening Your repeat blood work is reassuring. The repeat CT scan shows evidence of mild colitis which is swelling of the bowel wall. There was no longer any evidence of bowel obstruction. Most likely explanation for this is mild viral infection. There is always the possibility of some type of inflammatory process such as Crohn's disease or ulcerative colitis however there is nothing else in your history, presentation or blood work that would suggest that this is the case for you today. I suspect that you are going to continue to improve. I would recommend the simple boring diet for the next day or so but do advanced to at least soft foods. Initial recommendations can include bananas, rice, applesauce toast etcetera. Based on the CT scan today you do not have any stool in your colon which is why you are not having any bowel movements. When you began eating I suspect that bowel function will return to normal. I would recommend that you follow-up with your primary care physician to make sure that your symptoms are completely resolved and see if he has any additional recommendations for outpatient follow-up. If you find that you are getting worse or develop any new symptoms, please feel free to return to the emergency department for further evaluation. Prescriptions: No Action ketorolac 10 mg tablet 10 mg PO Q6H PRN (Reason: pain) 5 Days Qty: 10 0RF ondansetron 4 mg tablet,disintegrating 4 mg PO Q6H PRN (Reason: nausea and vomiting) Qty: 5 0RF Referrals: Nico Liang MD [Primary Care Provider] - Stand Alone Forms: Patient Portal/API
--- NOTE | 2022-09-25 20:12 | DI.CT.S_ITS ---
PROCEDURE: CT ABDOMEN PELVIS W CON INDICATIONS: persistent abd pain and SBO TECHNIQUE: After the administration of oral and intravenous contrast, axial sections acquired from the lung bases to the pubic symphysis. Coronal and sagittal reformats were performed. For radiation dose reduction, the following was used: automated exposure control, adjustment of mA and/or kV according to patient size. COMPARISON: [facility], CT, CT ABDOMEN PELVIS W CON, 09/23/2022, 3:30. FINDINGS: Image quality: Excellent. Lung bases: Unremarkable. Heart: No significant findings. ABDOMEN: Liver: Hepatic steatosis is seen, no discrete hepatic lesion. Gallbladder: Gallbladder is within normal limits. Biliary ducts: Unremarkable. Pancreas: Unremarkable. Spleen: Unremarkable. Adrenal Glands: Unremarkable. Kidneys and Ureters: Unremarkable. Stomach and Bowel: There is no bowel obstruction. Oral contrast is seen in stomach and small bowel loops extending to ileocecal junction. Appendix is visualized and is within normal limits. There is questionable colonic wall thickening with mildly narrowing of the lumen. No abscess collection. No significant pericolonic fat stranding. No free fluid or free air. Peritoneum: No abnormal intraperitoneal fluid. No free air. Ventral Wall: No hernias. Abdominal Nodes: No retroperitoneal or mesenteric adenopathy by size criteria. Vessels: Aorta and inferior vena cava are normal in size. PELVIS: Pelvic Organs: Unremarkable. Bladder: Unremarkable. Pelvic Nodes: No enlarged lymph nodes. Miscellaneous: No hernias are seen. Bones: No suspicious bony lesions. No acute vertebral body compression fracture. IMPRESSION: 1. Finding is concerning for low-grade infectious or inflammatory colitis. No abscess collection. No free fluid or free air. 2. No evidence of small-bowel obstruction is seen on the current study. Normal appendix. Dictated by: Luke Clifton M.D. on 09/25/2022 at 21:40 Approved by: Luke Clifton M.D. on 09/25/2022 at 21:42
[2022-09-25] MEDS: ONDANSETRON 4 MG/2 ML INJ IV (20:33)
[2022-09-25] MEDS: SODIUM CHLORIDE 0.9% 1,000 ML 1000 ML IV (20:34)
[2022-09-25 20:40] LABS: Add Manual Diff / Slide Review NO; Basophils Absolute Auto 100 /uL (0-100); Basophils Percent Auto 1.1 % (0-2); Eosinophils Absolute Auto 200 /uL (0-450); Eosinophils Percent Auto 3.6 % (2-4); Hemoglobin 15.2 g/dL (13.5-17.5); Lymphocytes Absolute Auto 2100 /uL (1100-4500); Mean Corpuscular HGB Conc 34.6 % (30-36); Mean Corpuscular Hemoglobin 30.7 PG (26-34); Mean Corpuscular Volume 88.7 fL (80-100); Monocytes Absolute Auto 400 /uL (0-900); Monocytes Percent Auto 6.1 % (3-14); Neutrophils Absolute Auto 3200 /uL (1500-7000); Neutrophils Percent Auto 54.2 % (50-75); Platelet Count 215 X10^3/uL (150-400); Red Blood Cell Count 4.96 X10^6/uL (4.5-5.9); Red Cell Distribution Width 12.5 % (11.6-14.8); White Blood Cell Count 5.9 X10^3/uL (4.5-11.0)
[2022-09-25 20:52] LABS: Alanine Aminotransferase 29 IU/L (<50); Albumin 4.7 g/dL (3.5-5.0); Albumin Globulin Ratio 1.4 (1.0-2.8); Alkaline Phosphatase 68 U/L (38-126); Aspartate Aminotransferase 26 IU/L (17-59); BUN Creatinine Ratio 14.7 (6-22); Bilirubin Total 1.2 mg/dL (0.2-1.3); Blood Urea Nitrogen 14 mg/dL (9-20); Calcium 9.1 mg/dL (8.4-10.2); Carbon Dioxide 28 mmol/L (22-32); Chloride 100 mmol/L (98-107); Estimated Glomerular Filt Rate > 60 mL/min (>60); Globulin 3.3 g/dL (1.7-4.1); Glucose 79 mg/dL (70-100); HEMOLYSIS 34 (0-50); Lipase 94 U/L (23-300); Potassium 3.7 mmol/L (3.4-5.1); Sodium 137 mmol/L (137-145)
[2022-09-25 22:23] VITALS: BP 145/84; PULSE 57; RESP 18; TEMP 36.6; O2SAT 98
== END 2022-09-25 22:24 | disposition home or self-care (01) ==
LOC: ED 20:09 → AC 21:04 → ED 22:09
PROVIDERS: Emergency Provider Surgery; PCP Family Medicine; Referring Provider Emergency Medicine
DX: K52.9 Noninfective gastroenteritis and colitis, unspecified (principal)
CPT/HCPCS: 36415; 74177; 80053; 83690; 85025; 96361; 96374; 99284; J2405; Q9967